=== PATIENT | female | born 1995 | race Caucasian/White ===

== ENCOUNTER 2016-10-23 03:59 | Emergency (ER) | payer SELFPAY ==
[2016-10-23] MEDS ORDERED: ONDANSETRON 4 MG/2 ML VIAL ONE (04:03)
[2016-10-23] MEDS ORDERED: NS 1,000 ML IV ONE (04:20)
[2016-10-23] MEDS ORDERED: ONDANSETRON 4 MG/2 ML VIAL IVP ONE (04:20)
--- NOTE | 2016-10-23 04:41 | EDPHY ---
H & P Stated Complaint: ETOH with emesis HPI/ROS: HPI CHIEF COMPLAINT: Alcohol Intoxication HISTORY OF PRESENT ILLNESS: This patient very pleasant 21-year-old female denies any significant medical history or surgical history presents to the emergency room by private vehicle for acute alcohol intoxication. Per her significant other at bedside it was her 21st birthday she when out had multiple shots of liquor this evening return home earlier in the evening with nausea vomiting was unable to ambulate so they brought her here by private vehicle with a friend. Upon arrival here in the emergency room she is highly intoxicated with alcohol. she did smoke marijuana earlier this evening as well. Past Medical History: No significant medical history Past Surgical History: No significant surgical history Social History: Occasional alcohol use, denies tobacco, smokes marijuana Family History: Noncontributory ROS REVIEW OF SYSTEMS: A comprehensive 10 point review of systems is otherwise negative aside from elements mentioned in the history of present illness. Exam Constitutional Intoxicated, triage nursing summary reviewed, vital signs reviewed, Sleepy, smells of alcohol Eyes normal conjunctivae and sclera, horizontal beating nystagmus consistent acute alcohol intoxication, otherwise pupils equal and react to light HENT normal inspection, atraumatic, moist mucus membranes, no epistaxis, neck supple/ no meningismus, no raccoon eyes. Respiratory clear to auscultation bilaterally, normal breath sounds, no respiratory distress, no wheezing. Cardiovascular rate normal, regular rhythm, no murmur, no edema, distal pulses normal. Gastrointestinal soft, non-tender, no rebound, no guarding, normal bowel sounds, no distension, no pulsatile mass. Genitourinary no CVA tenderness. Musculoskeletal no midline vertebral tenderness, full range of motion, no calf swelling, no tenderness of extremities, no meningismus, good pulses, neurovascularly intact. Skin pink, warm, & dry, no rash, skin atraumatic. Neurologic sleepy, intoxicated with alcohol,, alert and oriented x 3, AAOx3, moves all 4 extremities equally, motor intact, sensory intact, CN II-XII intact , , normal vision, normal speech. Psychiatric normal mood/affect. Heme/Lymph/Immune no lymphadenopathy. Differential Diagnosis: Includes but is not limited to in a particular order acute alcohol intoxication, alcohol abuse, dehydration, electrolyte abnormality , nausea vomiting from acute alcohol intoxication Medical Decision Making: Patient had an IV established be given IV fluids for gentle hydration, IV Zofran for nausea induced by alcohol. Will monitor on a monitor for sobriety. Re-evaluation: 0505: Breath alcohol 218. 0625: Re-evaluation this time this patient ambulated well with a steady gait is no longer intoxicated she is not vomiting she is agreeable for discharge. Source: Patient - Personal History LMP (Females 10-55): 22-28 Days Ago Current Tetanus/Diphtheria Vaccine: Yes Current Tetanus Diphtheria and Acellular Pertussis (TDAP): Yes - Medical/Surgical History Hx Asthma: No Hx Chronic Respiratory Disease: No Hx Diabetes: No Hx Cardiac Disease: No Hx Renal Disease: No Hx Cirrhosis: No Hx Alcoholism: No Hx HIV/AIDS: No Hx Splenectomy or Spleen Trauma: No - Social History Smoking Status: Never smoked Constitutional: Initial Vital Signs Temperature (C) 36.3 C 10/23/16 04:18 Heart Rate 76 10/23/16 04:18 Respiratory Rate 14 10/23/16 04:18 Blood Pressure 105/66 10/23/16 04:18 O2 Sat (%) 99 10/23/16 04:18 O2 Delivery Mode Room Air Allergies/Adverse Reactions: No Known Allergies Allergy (Unverified 10/23/16 04:18) Home Medications: Medication Instructions Recorded NK [No Known Home Meds] 10/23/16 Medical Decision Making - Data Points Medications Given: Discontinued Medications Sodium Chloride (Ns) 1,000 mls @ 0 mls/hr IV ONCE ONE PRN Reason: Wide Open Stop: 10/23/16 04:21 Last Admin: 10/23/16 04:21 Dose: 1,000 mls Ondansetron HCl (Zofran) 4 mg IVP EDNOW ONE Stop: 10/23/16 04:21 Last Admin: 10/23/16 04:22 Dose: 4 mg Departure - Departure Disposition: Home, Routine, Self-Care Clinical Impression: Alcohol intoxication Qualifiers: Complication of substance-induced condition: uncomplicated Qualified Code(s): F10.120 - Alcohol abuse with intoxication, uncomplicated Condition: Fair Instructions: Alcohol Intoxication (ED) Referrals: Patient,NotPresent [Primary Care Provider] - As per Instructions
[2016-10-23 06:35] VITALS: BP 110/51; PULSE 73; RESP 16; TEMP 97.7; O2SAT 97
== END 2016-10-23 06:41 | disposition home or self-care (01) ==
DX: F10.120 Alcohol abuse with intoxication, uncomplicated (principal)
CPT/HCPCS: 96374; J2405